=== PATIENT | female | born 1980 | race Caucasian/White ===

== ENCOUNTER 2017-11-19 09:34 | Emergency (ER) | payer BC ==
[2017-11-19 09:50] VITALS: BP 115/70; PULSE 114; TEMP 99.8; BMI 22.3
--- NOTE | 2017-11-19 10:39 | PDOC ---
History of Present Illness - General Chief Complaint: Cold Symptoms Stated Complaint: FLU LIKE SYMPTOMS/sore throat Time Seen by Provider: 11/19/17 10:09 History Source: Patient Exam Limitations: No Limitations - History of Present Illness Initial Comments: 11/19/17 10:25 patient came to emergency department for evaluation of fevers Tmax 102, bodyaches, sore throat pain ear pain and moist nonproductive cough. Thinks has the flu 11/19/17 12:26 Timing/Duration: reports: just prior to arrival Severity: reports: mild, moderate Associated Symptoms: reports: chest pain/soreness, cough, facial pain, fever/ chills, lightheadedness, nasal drainage, sore throat Past History - Travel Traveled outside of the country in the last 30 days: No Close contact w/someone who was outside of country & ill: No - Past Medical History Allergies/Adverse Reactions: Allergies Allergy/AdvReac Type Severity Reaction Status Date / Time No Known Allergies Allergy Verified 11/19/17 09:45 Home Medications: Ambulatory Orders Oseltamivir Phosphate [Tamiflu -] 75 mg PO BID #10 capsule 11/19/17 Anemia: No Asthma: No Cancer: No Cardiac Disorders: No CVA: No COPD: No CHF: No DVT: No Dementia: No Diabetes: No Dialysis: No GI Disorders: No Disorders: No HTN: No Hypercholesterolemia: No Kidney Stones: No Liver Disease: No Psychiatric Problems: No Seizures: No Thyroid Disease: No Lung CA: No - Surgical History Abdominal Surgery: Yes ( x3) - Reproductive History (#): 3 Para: 2 Ectopic : Yes Therapeutic (s) & number: No Spontaneous : 1 - Suicide/Smoking/Psychosocial Hx Smoking Status: No Smoking History: Never smoked Have you smoked in the past 12 months: No Number of Cigarettes Smoked Daily: 0 Information on smoking cessation initiated: No Hx Alcohol Use: No Drug/Substance Use Hx: No Substance Use Type: None Respiratory Specific PMHX - Complaint Specific PMHX Angina: No Review of Systems - Review of Systems Able to Perform ROS?: Yes Is the patient limited Urdu proficient: Yes Constitutional: Yes: Symptoms Reported, See HPI, Malaise HEENTM: Yes: Symptoms Reported, See HPI, Nose Congestion, Throat Pain Respiratory: Yes: Symptoms reported, See HPI, Cough. No: Wheezing, Productive cough ABD/GI: Yes: Symptoms Reported, Nausea. No: Vomiting Musculoskeletal: Yes: Symptoms Reported, See HPI, Back Pain Neurological: Yes: Symptoms reported, See HPI, Headache All Other Systems: Reviewed and Negative *Physical Exam - Vital Signs Last Vital Signs Temp Pulse Resp BP Pulse Ox 99.8 F H 114 H 18 115/70 100 11/19/17 09:46 11/19/17 09:46 11/19/17 09:46 11/19/17 09:46 11/19/17 09:46 - Physical Exam General Appearance: Yes: Nourished, Appropriately Dressed, Apparent Distress, Mild Distress HEENT: positive: FELIBERTO (glassy), TMs Normal (congested ), Muffled/Hoarse voice, Pharyngeal Erythema (without exudate), Nasal Congestion, Rhinorrhea. negative: Normal ENT Inspection, Pharynx Normal, Sinus Tenderness Neck: positive: Supple, Lymphadenopathy (R), Lymphadenopathy (L) Respiratory/Chest: positive: Lungs Clear, Normal Breath Sounds Gastrointestinal/Abdominal: positive: Normal Bowel Sounds, Soft. negative: Tender Musculoskeletal: positive: Normal Inspection Extremity: positive: Normal Capillary Refill, Normal Inspection, Normal Range of Motion Integumentary: positive: Dry, Warm, Pale Neurologic: positive: materials manager II-XII NML intact, Fully Oriented, Alert, Normal Mood/ Affect, Normal Response, Motor Strength 5/5 Progress Note - Progress Note Progress Note: Rapid strep test negative, all symptoms point to probable influenza, will treat with Tamiflu *DC/Admit/Observation/Transfer Diagnosis at time of Disposition: Influenza - Discharge Dispostion Disposition: HOME Condition at time of disposition: Stable Admit: No - Prescriptions Prescriptions: Oseltamivir Phosphate [Tamiflu -] 75 mg PO BID #10 capsule - Referrals Referrals: STAFF,NOT ON [Primary Care Provider] - - Patient Instructions Printed Discharge Instructions: DI for Viral Upper Respiratory Infection -- Adult Additional Instructions: Rest, drink lots of fluids: Teas, water, soups, Pedialyte Saltwater gargles Steamy showers/seem to face break up mucus Old-fashioned treatments help! Avoid contact with others until fevers and cough resolved as this is very contagious Lots of handwashing and good hygiene Continue [id number] medications for symptomatic relief Tylenol or Motrin for fever and pain Take all of Tamiflu as directed: 1 tab every 12 hours for 5 days Followup with private physician in one to 2 days as needed or if worsening Return to emergency department for worsened symptoms, fevers, dehydration Influenza takes between 5 and 7 days for resolution To not participate in any activity, work, or school until fevers and cough are gone for at least one day - Post Discharge Activity Forms/Work/School Notes: Back to Work
== END 2017-11-19 10:46 | disposition home or self-care (01) ==
LOC: JER 09:34 → JERFT 09:34
DX: J11.1 Influenza due to unidentified influenza virus with other respiratory manifestations (principal)
CPT/HCPCS: 87070; 87430; 99281-25

== ENCOUNTER 2022-12-01 09:00 | Inpatient (IN) | payer BC, OTHER ==
[2022-12-01] MEDS: ELECTROLYTE-148 SOLN 1,000 ML IV SCH ×2 (09:45→12:00)
[2022-12-01] MEDS ORDERED: CITRIC ACID/SODIUM CITRATE 30 ML UNIT-DOSE CUP PO ONE (09:55)
[2022-12-01 10:36] VITALS: BMI 29.3
[2022-12-01 13:55] LABS: POC NITRAZINE POS
[2022-12-01] MEDS ORDERED: ONDANSETRON 4 MG/2 ML VIAL IVPUSH PRN (14:44)
[2022-12-01] MEDS ORDERED: morphine SULFATE/PF 1 MG/2 ML (2cc Syringe - QUVA) EP ONE (14:44)
[2022-12-01] MEDS ORDERED: morphine SULFATE (PF) 1 MG/2 ML SYRINGE ONE (14:49)
[2022-12-01] MEDS ORDERED: SODIUM CHLORIDE 0.9% P/F 10 ML VIAL IJ ONE (14:50)
[2022-12-01] MEDS ORDERED: ceFAZolin SODIUM 1 GM VIAL ONE (14:50)
[2022-12-01] MEDS ORDERED: PHENYLEPHRINE HCL 10 MG/1 ML SINGLE DOSE VIAL ONE (14:57)
[2022-12-01] MEDS ORDERED: OXYTOCIN 10 UNITS/ML VIAL ONE ×2 (14:57→15:32)
[2022-12-01] MEDS ORDERED: ACETAMINOPHEN 325 MG TABLET (FP) PO PRN (15:49)
[2022-12-01] MEDS ORDERED: METHYLERGONOVINE MALEATE 0.2 MG/1 ML AMP IM PRN (15:49)
[2022-12-01 15:57] LABS: CORD HCO3 28.6 mmHg (20-29); CORD PCO2 63.6 mmHg (30-78); CORD pH 7.271 (7.14-7.44)
[2022-12-01 16:00] LABS: CORD BASE EXCESS -0.4 mmol/L (0-2); CORD HCO3 26.2 mmHg (20-29); CORD PCO2 49.4 mmHg (30-78); CORD pH 7.342 (7.14-7.44)
[2022-12-01] MEDS ORDERED: IBUPROFEN 800 MG/8 ML IJ IVPB ONE (17:10)
[2022-12-01] MEDS: IBUPROFEN 800 MG/8 ML IJ IVPB PRN (17:15)
[2022-12-01] MEDS: OXYTOCIN 20 UNITS in 0.9% NS 20 UNIT/1,000 ML INFUS.BAG IV SCH (17:40)
[2022-12-01] MEDS ORDERED: OXYTOCIN 20 UNITS in 0.9% NS 20 UNIT/1,000 ML INFUS.BAG IV ONE (17:44)
[2022-12-01] MEDS: CEFAZOLIN 1 GM in DEXTROSE 5%-WATER - 50 ML IVPB SCH (21:09)
[2022-12-02] MEDS: CEFAZOLIN 1 GM in DEXTROSE 5%-WATER - 50 ML IVPB SCH ×3 (02:17→17:25)
[2022-12-02] MEDS ORDERED: oxyCODONE HCL 5 MG TABLET PO PRN (03:49)
[2022-12-02] MEDS: IBUPROFEN 800 MG/8 ML IJ IVPB PRN ×2 (04:10→14:03)
[2022-12-02] MEDS: ENOXAPARIN NA (PORCINE) 40 MG/0.4 ML DISP.SYRIN SQ SCH (09:47)
[2022-12-02] MEDS: OXYTOCIN 20 UNITS in 0.9% NS 20 UNIT/1,000 ML INFUS.BAG IV SCH (09:48)
[2022-12-02 10:28] LABS: BASO % 0.5 % (0-2.0); EOS % 1.3 % (0-4.5); HEMATOCRIT 33.1 % (32.4-45.2); HEMOGLOBIN 11.4 GM/dL (10.7-15.3); LYMPH % 16.9 % (8-40); MCH 32.4 pg (25.7-33.7); MCHC 34.3 g/dl (32.0-36.0); MEAN CELL VOLUME 94.3 fl (80-96); MEAN PLT VOLUME 7.9 fl (7.5-11.1); MONO % 7.5 % (3.8-10.2); NEUT % 73.8 % (42.8-82.8); PLATELET COUNT 222 10^3/uL (134-434); RBC 3.51 M/mm3 (3.60-5.2); RDW 14.9 % (11.6-15.6); WHITE BLOOD COUNT 9.7 K/mm3 (4.0-10.0)
[2022-12-02] MEDS: SENNOSIDES/DOCUSATE COMBO (SENNA PLUS) TABLET (UD) PO SCH ×2 (14:04→21:03)
[2022-12-02] MEDS ORDERED: BISACODYL 10 MG SUPP.RECT RC PRN (15:49)
[2022-12-02] MEDS: ACETAMINOPHEN 325 MG TABLET (FP) PO PRN (20:27)
[2022-12-02] MEDS: SIMETHICONE 80 MG TAB.CHEW (FP) PO PRN (20:27)
[2022-12-02] MEDS: IBUPROFEN 600 MG TABLET (FP) PO PRN (22:08)
[2022-12-03] MEDS: IBUPROFEN 600 MG TABLET (FP) PO PRN ×3 (04:39→20:16)
[2022-12-03] MEDS: SIMETHICONE 80 MG TAB.CHEW (FP) PO PRN ×4 (04:39→22:42)
[2022-12-03] MEDS: oxyCODONE HCL 5 MG TABLET PO PRN ×4 (07:51→22:43)
[2022-12-03] MEDS: ENOXAPARIN NA (PORCINE) 40 MG/0.4 ML DISP.SYRIN SQ SCH (10:42)
[2022-12-03] MEDS: SENNOSIDES/DOCUSATE COMBO (SENNA PLUS) TABLET (UD) PO SCH ×2 (10:42→21:38)
[2022-12-04] MEDS: SIMETHICONE 80 MG TAB.CHEW (FP) PO PRN (04:11)
[2022-12-04] MEDS: IBUPROFEN 600 MG TABLET (FP) PO PRN ×2 (04:11→09:43)
[2022-12-04] MEDS: oxyCODONE HCL 5 MG TABLET PO PRN (07:45)
[2022-12-04 08:29] LABS: BASO % 0.5 % (0-2.0); EOS % 2.4 % (0-4.5); HEMATOCRIT 33.4 % (32.4-45.2); HEMOGLOBIN 11.6 GM/dL (10.7-15.3); MCH 32.4 pg (25.7-33.7); MCHC 34.6 g/dl (32.0-36.0); MEAN CELL VOLUME 93.8 fl (80-96); MEAN PLT VOLUME 7.3 fl (7.5-11.1); MONO % 6.6 % (3.8-10.2); NEUT % 62.5 % (42.8-82.8); PLATELET COUNT 267 10^3/uL (134-434); RBC 3.57 M/mm3 (3.60-5.2); RDW 15.1 % (11.6-15.6); WHITE BLOOD COUNT 8.6 K/mm3 (4.0-10.0)
[2022-12-04] MEDS: ENOXAPARIN NA (PORCINE) 40 MG/0.4 ML DISP.SYRIN SQ SCH (09:31)
[2022-12-04] MEDS: SENNOSIDES/DOCUSATE COMBO (SENNA PLUS) TABLET (UD) PO SCH (09:31)
[2022-12-04 10:44] VITALS: BP 113/73; PULSE 97; RESP 18; TEMP 98.5
[2022-12-04] MEDS: ACETAMINOPHEN 325 MG TABLET (FP) PO PRN (12:47)
== END 2022-12-04 13:25 | disposition home or self-care (01) | DRG 785 ==
LOC: JLDR 09:00 → J3W 17:55
PROVIDERS: ADMIT Obstetrics & Gynecology; ATTEND Obstetrics & Gynecology
PROC: 10D00Z1 Extraction of Products of Conception, Low, Open Approach (ICD-10-PCS; principal; 2022-12-01)
PROC: 0UT50ZZ Resection of Right Fallopian Tube, Open Approach (ICD-10-PCS; 2022-12-01)
DX: O42.02 Full-term premature rupture of membranes, onset of labor within 24 hours of rupture (principal); O34.211 Maternal care for low transverse scar from previous cesarean delivery; O69.2XX0 Labor and delivery complicated by other cord entanglement, with compression, not applicable or unspecified; Z30.2 Encounter for sterilization; Z3A.38 38 weeks gestation of pregnancy; Z37.0 Single live birth
CPT/HCPCS: 36415; 36600; 82803; 83986-QW; 85025; 88302-TC; 88307-TC